=== PATIENT | male | born 1990 | race African-American/Black ===

== ENCOUNTER 2018-08-29 17:59 | Emergency (ER) | payer SELFPAY ==
[2018-08-29 19:15] LABS: Bilirubin Negative (Negative); Blood, Urine Negative (Negative); Clarity CLEAR (Clear); Glucose, Urine (Dipstick) Negative (Negative); Leukocyte Negative (Negative); Nitrite Negative (Negative); Protein, Urine (Dipstick) Negative (Neg-Trace); Specific Gravity, Urine 1.009 (1.002-1.036); pH, Urine 7.5 (5.0-9.0)
[2018-08-29 19:31] LABS: Amphetamine Not Detected (NotDetected); Barbiturates Screen Not Detected (NotDetected); Benzodiazepine Screen Not Detected (NotDetected); Cocaine Metabolite Screen Not Detected (NotDetected); Medtox Control Line Valid? VALID (VALID); Medtox Reader # READER 4; Methadone Not Detected (NotDetected); Methamphetamine Not Detected (NotDetected); Opiate Screen Not Detected (NotDetected); Oxycodone Screen Not Detected (NotDetected); Phencyclidine (PCP) Not Detected (NotDetected); THC/Cannabinoid Screen Detected (NotDetected); Tricyclic Screen Not Detected (NotDetected)
[2018-08-29 20:07] LABS: #Basophils 0.1 thou/uL (0.0-0.2); #Eosinphils 0.1 thou/uL (0.0-0.7); #Lymphocytes 1.2 thou/uL (1.20-3.40); #Monocytes 1.3 thou/uL (0.11-0.59); #Neutrophils 8.5 thou/uL (1.40-6.50); %Basophils 0.6 % (0.0-1.0); %Eosinophils 1.1 % (0.0-10.0); %Lymphocytes 10.9 % (21.0-51.0); %Monocytes 11.4 % (0.0-10.0); %Neutrophils 76.1 % (42.0-75.0); Hemoglobin 14.7 g/dL (14.0-18.0); Mean Corpuscular HGB CONC 32.8 g/dL (32.0-36.0); Mean Corpuscular Hemoglobin 32.5 pg (27.0-31.0); RBC Distribution Width 11.2 % (11.5-14.5); Red Blood Cell (RBC) Count 4.53 mill/uL (4.70-6.10); White Blood Cell (WBC) Count 11.2 thou/uL (4.8-10.8)
[2018-08-29 20:21] LABS: Anion Gap 13 mmol/L (10-20); Calc. Creatinine Clearance 0 mL/min (70-130); Calcium 9.7 mg/dL (7.8-10.44); Carbon Dioxide 29 mmol/L (22-29); Chloride 102 mmol/L (98-107); Estimated GFR-MDRD 78; Glucose 75 mg/dL (70-105); Potassium 3.7 mmol/L (3.5-5.1); Sodium 140 mmol/L (136-145)
[2018-08-29 20:22] LABS: Acetaminophen Less than 6.0 mcg/mL (10.0-30.0); Alcohol Less than 10 mg/dL (Less than 10); Salicylate Less than 8.0 mg/dL (15.0-30.0)
[2018-08-29 20:32] LABS: Large Platelets SLIGHT; MDiff Complete? YES; Mean Platelet Volume 11.1 fL (7.4-10.4); Platelet Count 148 thou/uL (130-400); Platelet Morphology Comment Appears Adequate; RBC Morphology Normal
[2018-08-29 21:19] LABS: BUN (Urea Nitrogen) 12 mg/dL (8.9-20.6)
== END 2018-08-29 22:42 | disposition home or self-care (01) ==
LOC: ERS 17:59
DX: F43.0 Acute stress reaction (principal); F41.9 Anxiety disorder, unspecified; F32.9 Major depressive disorder, single episode, unspecified; F17.210 Nicotine dependence, cigarettes, uncomplicated
CPT/HCPCS: 36415; 80048; 80306; 80307; 81003; 84443; 85025; 93005

== ENCOUNTER 2018-09-12 20:51 | Emergency (ER) | payer SELFPAY ==
--- NOTE | 2018-09-12 21:20 | RAD ---
RIGHT FOOT 3 VIEWS: Date: 09/12/18 HISTORY: Wound between the fourth and fifth digits of the left foot from 3 weeks ago, not improving. FINDINGS: There is some minimal soft tissue swelling between the toes of the fourth and fifth digits. No eviden ce for fracture or dislocation. No evidence for osteomyelitis. No overt foreign body. IMPRESSION: Minimal soft tissue swelling and soft tissue injury or wound between the fourth and fifth toes. No fr acture or dislocation, osteomyelitis, or other acute osseous abnormality. POS: RRE
== END 2018-09-12 22:03 | disposition home or self-care (01) ==
LOC: ERS 20:51
DX: B35.3 Tinea pedis (principal); F17.210 Nicotine dependence, cigarettes, uncomplicated; F41.9 Anxiety disorder, unspecified; F32.9 Major depressive disorder, single episode, unspecified

== ENCOUNTER 2018-11-13 23:42 | Emergency (ER) | payer SELFPAY | END 2018-11-14 00:33 | LOC: ERS 23:42 | DX: Z02.89 Encounter for other administrative examinations (principal) | CPT/HCPCS: 99283 ==